=== PATIENT | female | born 1985 | race Caucasian/White ===

== ENCOUNTER → 2022-09-06 08:50 | Outpatient (BNVA) | payer OTHER, SELFPAY | PROVIDERS: Referring Provider Electrodiagnostic Medicine; Visit Provider Obstetrics & Gynecology | DX: N92.0 Excessive and frequent menstruation with regular cycle (principal) | CPT/HCPCS: 83001; 84146; 84443; 84702; 85025 ==

== ENCOUNTER → 2022-10-07 11:30 | Outpatient (BNVA) | payer OTHER, SELFPAY | PROVIDERS: Visit Provider Obstetrics & Gynecology | DX: Z01.419 Encounter for gynecological examination (general) (routine) without abnormal findings (principal) | CPT/HCPCS: 87624 ==

== ENCOUNTER 2022-10-12 09:45 | Observation (INO) | payer OTHER, SELFPAY ==
[2022-10-10 09:37] VITALS: BMI 34.3
--- NOTE | 2022-10-10 09:55 | ANES.PREANE2 ---
Pre-Anesthetic Assessment Height/Weight: Height 1.63 m Weight 90.718 kg Operation Date: 10/12/22 08:25 Proposed Procedures p Laparoscopic Assist Vaginal Hysterectomy 50522,N92.0, D25.9,D64.9(Not Applicable) - Rolando Mauricio MD Familial anesthetic complications: None Social No alcohol and No tobacco Exam alert, oriented x 3, clear to auscultation bilaterally and regular rate & rhythm Airway Mallampati: Class II Dentition: chipped Anesthetic Plan ASA status: 2 Anesthesia: General Risk of > 500 ml blood loss (7ml/kg in children): No Medications/Allergies Home Medications Medication Instructions Recorded Confirmed Last Taken Type docusate sodium 100 mg capsule 100 mg PO DAILY 09/06/22 10/10/22 Unknown History (Colace) ferrous sulfate 325 mg (65 mg 325 mg PO DAILY 09/06/22 10/10/22 10/10/22 History iron) tablet famotidine 20 mg tablet 20 mg PO ONCE PRN Acid Reflux 10/10/22 10/10/22 Unknown History Allergies Allergy/AdvReac Type Severity Reaction Status Date / Time No Known Allergies Allergy Verified 10/10/22 09:38 [facility] Anesthesia Family History Grandfather Colon cancer Mother Denies family history of Ovarian cancer Diabetes Heart disease Hypercholesteremia Breast cancer Hypertension Uterine cancer Thyroid disease Stroke Data Anesthesia Cardiac Studies: No Data to Display
[2022-10-10 10:37] LABS: Add Urine Microscopic? NO; Charge for UA Resulting for Rev
[2022-10-10 10:49] LABS: Basophils % 0.7 %; Eosinophils # 0.1 10^3/uL (0.0-0.8); Eosinophils % 1.3 %; Hematocrit 38.3 % (37.0-47.0); Hemoglobin 12.6 g/dL (11.5-15.3); Lymphocytes # 1.6 10^3/uL (0.8-4.8); Lymphocytes % 29.3 %; Mean Corpuscular HGB Conc 32.9 g/dL (30.0-36.0); Mean Corpuscular Hemoglobin 27.3 pg (28.0-34.0); Mean Corpuscular Volume 83.1 fl (81-99); Monocytes # 0.4 10^3/uL (0.2-0.9); Monocytes % 8.1 %; Neutrophils # 3.26 10^3/uL (1.8-7.7); Neutrophils % 60.4 %; Nucleated Red Blood Cells % 0 %; Platelet Count 218 10^3/cmm (130-400); Red Blood Count 4.61 10^6/uL (4.1-5.3); Red Cell Distribution Width 13.2 % (12.1-15.1); White Blood Count 5.4 10^3/uL (4.0-10.0)
[2022-10-10 10:58] LABS: OR HCG Qualitative Urine Negative (Negative)
[2022-10-10 10:58] LABS: Bilirubin Urine Neg (Negative); Blood Urine Neg (Negative); Glucose Urine UA Norm (Normal); Ketones Urine Negative (Negative); Leukocyte Esterase Urine Negative (Negative); Nitrate Urine Negative (Negative); Protein Urine Neg (Negative); Sulfosalicylic Acid Urine Negative (Negative); Urine Appearance Clear (CLEAR); Urine Color Yellow (Yellow); Urobilinogen Urine Norm (Negative); pH Urine 8 (5-7)
[2022-10-10 11:01] LABS: Alanine Aminotransferase 10 U/L (0-33); Albumin Level 4.4 g/dL (3.5-5.2); Alkaline Phosphatase 62 U/L (35-105); Anion Gap 11.8 (5-19); Aspartate Amino Transferase 15 U/L (0-32); Blood Urea Nitrogen 15 mg/dL (6-20); Calcium 8.7 mg/dL (8.5-10.5); Carbon Dioxide 26 mmol/L (22-29); Chloride 100 mmol/L (98-107); Creatinine Clr Calc Pharmacy 120.0463; Globulin 2.4 g/dL (1.3-4.6); Glomerular Filtration Rate 94.2 mL/min (90-130); Glucose 86 mg/dL (65-115); Osmolality Calculated 278 mOsm/kg (285-295); Potassium 3.8 mmol/L (3.5-5.1); Sodium 134 mmol/L (136-145); Total Bilirubin 0.8 mg/dL (0.15-1.2); Total Protein 6.8 g/dL (6.6-8.7)
[2022-10-12] VITALS (17 sets, daily range): BP systolic 104–143; BP diastolic 63–98; PULSE 64–87; RESP 15–18; TEMP 36.1–36.8; O2SAT 92–99
[2022-10-12] MEDS: sodium chloride 0.9% 500 ML IV (06:12)
[2022-10-12] MEDS: scopolamine 1.5 Patch 1 PATCH TRANSDERMA (06:13)
--- NOTE | 2022-10-12 06:54 | P.ANESUD_ITS ---
Pre-Anesthetic Update Pre-Anesthetic Assessment: Date of Surgery/Procedure: 10/12/22 Preop [place] gnosis: AUB and Uterine fibroid Proposed Procedure: Operation Date: 10/12/22 07:00 Proposed Procedures p Laparoscopic Assist Vaginal Hysterectomy 02035,N92.0, D25.9,D64.9(Not Applicable) - Rolando Mauricio MD Any changes to Pre-Anesthetic Assessment?: No Last Intake: Intake Last Liquid Date 10/11/22 Last Liquid Time 19:00 Last Solid Date 10/11/22 Last Solid Time 19:00 Labs Last 48hrs: Short CBC 10/10/22 Range/Units 09:47 WBC 5.4 (4.0-10.0) 10^3/ uL Hgb 12.6 (11.5-15.3) g/dL Hct 38.3 (37.0-47.0) % MCV 83.1 (81-99) fl Plt Count 218 (130-400) 10^3/c mm Neut % (Auto) 60.4 % Neut # (Auto) 3.26 (1.8-7.7) 10^3/u L BMP 10/10/22 09:47 Sodium 134 L Potassium 3.8 Chloride 100 Carbon Dioxide 26 BUN 15 Creatinine 0.7 Glucose 86 Calcium 8.7 Liver Function 10/10/22 Range/Units 09:47 Total Bilirubin 0.8 (0.15-1.2) mg/dL AST 15 (0-32) U/L ALT 10 (0-33) U/L Alkaline Phosphata se 62 (35-105) U/L Albumin 4.4 (3.5-5.2) g/dL Urine 10/10/22 Range/Units 09:55 Urine Color Yellow (Yellow) Urine Appearance Clear (CLEAR) Urine pH 8 H (5-7) Ur Specific Gravit y 1.010 (1.005-1.030) Urine Protein Neg (Negative) Urine Glucose (UA) Norm (Normal) Urine Ketones Negative (Negative) Urine Nitrate Negative (Negative) Urine Bilirubin Neg (Negative) Ur Leukocyte Ava ase Negative (Negative) Blood Bank 10/10/22 09:47 Blood Type A Positive Rho(D) Type Positive Antibody Screen Negative Vitals: Temperature 97 F L 10/12/22 06:06 Temperature Source Temporal Artery S can 10/12/22 06:06 Pulse Rate 87 10/12/22 06:06 Respiratory Rate 16 10/12/22 06:06 Blood Pressure 143/96 10/12/22 06:06 Blood Pressure Gracie n 111 10/12/22 06:06 Pulse Oximetry 98 10/12/22 06:06 Oxygen Delivery Me thod Room Air 10/12/22 06:06 Exam: Pre-Anes Outpt Exam: alert, oriented x 3, clear to auscultation bilaterally and regular rate & rhythm Cardiac Studies: No Data to Display
[2022-10-12] MEDS: famotidine 20 mg/2 mL INJ IVP (07:00)
--- NOTE | 2022-10-12 07:00 | W.PM.OPSUD ---
Surgery/Procedure H&P Update DATE OF PROCEDURE: October 12, 2022 DATE H&P PERFORMED: 10/10/22 H&P UPDATE INFORMATION: I have reviewed H&P completed within last 30 days, I have examined patient prior to procedure and No changes to prior documentation PREOP DIAGNOSIS: AUB and Uterine fibroid PLANNED PROCEDURE: Operation Date: 10/12/22 07:00 Proposed Procedures p Laparoscopic Assist Vaginal Hysterectomy 02622,N92.0, D25.9,D64.9(Not Applicable) - Rolando Mauricio MD
[2022-10-12] MEDS: citric acid-sodium citrate 30 mL UDC PO (07:02)
[2022-10-12] MEDS: sodium chloride 0.9% 1,000 ML 30 ML IV (07:03)
[2022-10-12] MEDS: ceFOXitin 2,000 MG in sodium chloride 0.9% (plus) 50 ML 100 MG IV (07:06)
[2022-10-12] MEDS: lidocaine-epi 2% 20 mL INJ 10 ML INJECTION (09:23)
--- NOTE | 2022-10-12 09:35 | P.OP_ITS ---
Operative Report Date of procedure: October 12, 2022 Pre-op diagnosis: Preop Diagnosis AUB and Uterine fibroid Post-op diagnosis: Same as above Post-op findings: Enlarged uterus Procedure done: Laparoscopic assisted vaginal hysterectomy Specimens removed/disposition: Uterus Surgeon: Rolando Mauricio MD Estimated blood loss (mL): 300 IV fluids (mL): 1,700 Urine output (mL): 800 Complications: None Procedure: After discussing informed consent again, the patient was taken to the operating room where general anesthesia was administered. She was placed in the dorsal lithotomy position in low stirrups and prepped and draped in sterile fashion. Pre-Procedure Time-Out verifying the correct patient identity, correct procedure verified with consent, correct site and side, correct patient position, availability of correct implants and any special equipment or requirements was performed and acknowledge by the OR team. After the initial preparation, the procedure commenced at the vagina. With a Bookwalter vaginal retractor was place to visualize the cervix; the anterior and posterior lips of the cervix were separately grasped and clamped with evelin tooth tenaculum. The cervix was then dilated to a #6 hegar dilator and a uterine manipulator within the uterine cavity for manipulation purposes being careful not to puncture the uterus. A Carrera catheter was placed in the bladder. Attention was then turned to the abdomen. The umbilical region was infiltrated with 2% lidocaine with epinephrine. Following infiltration with 2% lidocaine with epinephrine, an intraumbilical incision was made and the Verres needle was gently advanced taking care to feel for the typical sensation of penetrating the peritoneum. With CO2 infiltration, an opening pressure of 5 mmHg was noted, and following this, a pneumoperitoneum of 15 mmHg was created. A 5 mm Optiview trocar was then passed through the same incision under direct visualization. Trocar was removed and the laparoscope was then inserted through the trocar sleeve. Visualization of the peritoneal cavity was then obtained and a brief inspection did not reveal any signs of complications from entry. Under direct observation, a second incision was made 3 cm above the symphysis pubis, and a 5 mm trocar and sleeve were admitted into the abdomen under direct, laparoscopic visualization, a third 5mm flank ports were then placed on left sides taking care to respect anatomical landmarks and vessels without complication. Once the placement of the ports was complete, the actual laparoscopic procedure began. Beginning on the right side and distally along the length of the fallopian tube, the mesosalpinx was exposed by lifting the tube/ovary up towards the anterior abdominal wall. The mesosalpinx was then sequentially, clamped, ligated, and cut using the LigaSure device working alongside the length of the tube and towards the cornua. Once the level of the cornua was reached attention was then turned to the other side. The same process was repeated on the left, sequentially clamping, sealing/ligating, and cutting the mesosalpinx being sure to not injure the adjacent ovarian tissue or other surrounding structures. The round ligament was then clamped, sealed/ligated and cut with the LigaSure device. Following this, the anterior leaf of the broad ligament was then taken down on the left side, dissecting down towards the peritoneal reflection at the base of the bladder and adjacent to the cervix. The same process was then repeated on the left side such that both sides met and the anterior leaflet had been appropriately skeletonized. To ensure excellent hemostasis prior to further manipulation, the pedicles of the cardinal ligament was then clamped sealed/ligated and divided on each side using the LigaSure device. Attention was then turned to the vaginal aspect of the surgery. A Bookwalter vaginal retractor was placed in the vagina and the uterine manipulator was removed. The tenaculum was repositioned anteriorly and posteriorly. A circumferential incision was made at the cervical vaginal reflection using cautery. This was undermined first anteriorly and a colpotomy made without difficulty. This was then repeated posteriorly and a similar colpotomy made. Darrick retractors were then placed into each of these incisions. Beginning first on the patient's left, the uterosacral and cardinal ligament was clamped, sealed, and divided with the Voyant open fusion device. Two bites were required to reach the previous dissection margin of the left side. The same process was then repeated on the patient's right hand side, at which point, the specimen was completely freed. Once the sutures had been placed and the pedicles secured, the uterus removed transvaginally without difficulty. All pedicles were inspected and hemostasis was confirmed. The vaginal vault was then oversewn with a running locking Vicryl suture, securing first the posterior edge of the cuff followed by the anterior edge. Good hemostasis was obtained. Two [id number] sutures were then placed across the vaginal vault to close it. Once these had been tied off, all sutures were trimmed; a wet sponge was placed in the vagina to pack it off while attention was again turned back to the abdomen. All instruments were removed from the vagina at this time. Using the laparoscope the abdomen was carefully inspected to ensure complete hemostasis. Once the entire abdomen was inspected, the instruments carefully removed. The ports were then removed under direct visualization being sure to note hemostasis of the port sites on removal. The incisions were then closed with interrupted Vicryl sutures and Dermabond. The patient tolerated the procedure well, anesthesia reversed, and the patient was taken to the recovery room in stable condition. All sponges, instruments, and sharps were counted and correct x 3. I spent 35 minutes with the patient in discussion and counseling as documented above This documentation was created by [employer] transcription coordinator software (known for inherent transcription coordinator error). Every effort was made to assure accuracy of transcription coordinator. But this EMR does not have a spell check medical dictionary.
--- NOTE | 2022-10-12 09:58 | PC.NURSE ---
Pt arrived to PACU, resting comfortably, VSS, no pain or nausea noted. Dermabond to abdomen C/D/I, peripad in place-no drainage noted at this time. Carrera catheter patent and draining. SCDs in place and running.
[2022-10-12] MEDS: fentaNYL 50 mcg/mL INJ 2mL IVP (10:05)
--- NOTE | 2022-10-12 10:25 | ANE.PACU2 ---
Inpatient post-anesthesia follow up: Airway intact: Yes Vital signs: Temperature 98.0 F Pulse Rate 83 Respiratory Rate 18 Blood Pressure 134/98 Pulse Oximetry 93 Oxygen Delivery Me thod Room Air Oxygen Flow Rate Fraction of Inspir ed Oxygen Hydration adequate: Yes Nausea and vomiting: No Pain level: 1 Mental status: Baseline
[2022-10-12] MEDS: dextrose 5%-lactated ringers 1,000 ML 125 ML IV ×2 (10:47→18:33)
[2022-10-12] MEDS: acetaminophen 325 mg Tablet 650 MG PO ×2 (13:01→18:33)
[2022-10-12] MEDS: ketorolac 30 mg/mL INJ IVP ×2 (15:28→21:56)
[2022-10-12] MEDS: docusate sodium 100 mg Capsule PO (17:56)
[2022-10-12] MEDS: phenazopyridine 100 mg Tablet PO (17:57)
[2022-10-13 02:24] VITALS: PULSE 80; RESP 16; TEMP 36.8; O2SAT 98
[2022-10-13] MEDS: dextrose 5%-lactated ringers 1,000 ML 125 ML IV (02:41)
[2022-10-13 04:00] VITALS: BP 117/73; PULSE 68; RESP 15; TEMP 36.6; O2SAT 97
[2022-10-13 05:10] LABS: Hematocrit 27.7 % (37.0-47.0); Hemoglobin 9.1 g/dL (11.5-15.3); Mean Corpuscular HGB Conc 32.9 g/dL (30.0-36.0); Mean Corpuscular Hemoglobin 27.9 pg (28.0-34.0); Mean Platelet Volume 10.2 fL (7.4-10.4); Platelet Count 144 10^3/cmm (130-400); Red Blood Count 3.26 10^6/uL (4.1-5.3); Red Cell Distribution Width 12.9 % (12.1-15.1); White Blood Count 7.5 10^3/uL (4.0-10.0)
[2022-10-13 07:30] VITALS: BP 126/73; PULSE 87; RESP 16; TEMP 36.9
--- NOTE | 2022-10-13 08:30 | PM.OBGYDC ---
Discharge Providers CUSTOM BOW MAKER Date of Admission: 10/12/22 09:45 Date of Discharge: 10/13/22 Attending Provider at Admission: Rolando Mauricio MD Attending Provider at Discharge: Rolando Mauricio MD Primary CUSTOM BOW MAKER: Rolando Mauricio MD Reason for Visit Reason for Visit: 91223 N92.0 Hospital Course Hospital Course Mrs. Cody 36-year-old female with a history of abnormal uterine bleeding and enlarged uterus suggestive of uterine fibroid. Admitted for laparoscopic-assisted vaginal hysterectomy. Procedure was performed without complications. Overnight postoperative observation was uneventful. She is afebrile hemodynamically stable postoperative day 1. Tolerating diet well. Ambulating without difficulty. She was counseled regarding pelvic rest for 6 weeks (no sex, no tampons, no vaginal douches). Return to the emergency room if any fever, increased bleeding or pain. Physical Exam Narrative: GA: Alert and oriented ?3. HEENT: WNL. Heart: Regular rate and rhythm. Lungs: Clear to auscultation bilaterally. Abdomen: Bowel sounds present, nontender, no distention, no guarding. PLATING TECHNICIAN: No bleeding. Extremities: No edema, no cyanosis, no calves pain. Urinary Catheter Management: Carrera: Cath Placed During This Visit: yes, but has since been removed by the nurse Reason for Continuing Indwelling Catheter: Decision to DC Catheter Urinary Catheter Date of Insertion: 10/12/22 Urinary Catheter Time of Insertion: 07:38 Date Urinary Catheter Removed: 10/13/22 Time Urinary Catheter Discontinued: 05:15 History History History 2 Term 2 0 Miscarriages/Ectopic 0 Living Children 2 Discharge Data Studies Completed and Pending Pending at discharge Category Date Time Status Pathology: Surgical [PTH] Routine Pth 10/12/22 09:11 Received Laboratory Results WBC 7.5 10^3/uL (4.0-10.0) 10/13/22 05:00 RBC 3.26 10^6/uL (4.1-5.3) L 10/13/22 05:00 Hgb 9.1 g/dL (11.5-15.3) L 10/13/22 05:00 Hct 27.7 % (37.0-47.0) L 10/13/22 05:00 MCV 85.0 fl (81-99) 10/13/22 05:00 MCH 27.9 pg (28.0-34.0) L 10/13/22 05:00 MCHC 32.9 g/dL (30.0-36.0) 10/13/22 05:00 RDW 12.9 % (12.1-15.1) 10/13/22 05:00 Plt Count 144 10^3/cmm (130-400) 10/13/22 05:00 MPV 10.2 fL (7.4-10.4) 10/13/22 05:00 Neut % (Auto) 60.4 % 10/10/22 09:47 Lymph % (Auto) 29.3 % 10/10/22 09:47 [place] % (Auto) 8.1 % 10/10/22 09:47 Eos % (Auto) 1.3 % 10/10/22 09:47 Baso % (Auto) 0.7 % 10/10/22 09:47 Neut # (Auto) 3.26 10^3/uL (1.8-7.7) 10/10/22 09:47 Lymph # (Auto) 1.6 10^3/uL (0.8-4.8) 10/10/22 09:47 [place] # (Auto) 0.4 10^3/uL (0.2-0.9) 10/10/22 09:47 Eos # (Auto) 0.1 10^3/uL (0.0-0.8) 10/10/22 09:47 Baso # (Auto) 0.0 10^3/uL (0.0-0.1) 10/10/22 09:47 Nucleated RBC % (auto) 0 % 10/10/22 09:47 Nucleated RBCs # 0.0 /100WBC 10/10/22 09:47 Sodium 134 mmol/L (136-145) L 10/10/22 09:47 Potassium 3.8 mmol/L (3.5-5.1) 10/10/22 09:47 Chloride 100 mmol/L (98-107) 10/10/22 09:47 Carbon Dioxide 26 mmol/L (22-29) 10/10/22 09:47 Anion Gap 11.8 (5-19) 10/10/22 09:47 BUN 15 mg/dL (6-20) 10/10/22 09:47 Creatinine 0.7 mg/dL (0.5-0.9) 10/10/22 09:47 GFR Calculation 94.2 mL/min (90-130) 10/10/22 09:47 Glucose 86 mg/dL (65-115) 10/10/22 09:47 Calculated Osmolality 278 mOsm/kg (285-295) L 10/10/22 09:47 Calcium 8.7 mg/dL (8.5-10.5) 10/10/22 09:47 Total Bilirubin 0.8 mg/dL (0.15-1.2) 10/10/22 09:47 AST 15 U/L (0-32) 10/10/22 09:47 ALT 10 U/L (0-33) 10/10/22 09:47 Alkaline Phosphatase 62 U/L (35-105) 10/10/22 09:47 Total Protein 6.8 g/dL (6.6-8.7) 10/10/22 09:47 Albumin 4.4 g/dL (3.5-5.2) 10/10/22 09:47 Globulin 2.4 g/dL (1.3-4.6) 10/10/22 09:47 Urine Color Yellow (Yellow) 10/10/22 09:55 Urine Appearance Clear (CLEAR) 10/10/22 09:55 Urine pH 8 (5-7) H 10/10/22 09:55 Ur Specific [place] 1.010 (1.005-1.030) 10/10/22 09:55 Urine Protein Neg (Negative) 10/10/22 09:55 Urine Glucose (UA) Norm (Normal) 10/10/22 09:55 Urine Ketones Negative (Negative) 10/10/22 09:55 Urine Blood Neg (Negative) 10/10/22 09:55 Urine Nitrate Negative (Negative) 10/10/22 09:55 Urine Bilirubin Neg (Negative) 10/10/22 09:55 Prot Sulfosalicylic Acd Negative (Negative) 10/10/22 09:55 Urine Urobilinogen Norm mg/dL (Negative) 10/10/22 09:55 Ur Leukocyte Esterase Negative (Negative) 10/10/22 09:55 Urine HCG, Qual Negative (Negative) 10/10/22 09:47 Blood Type A Positive 10/10/22 09:47 Rho(D) Type Positive 10/10/22 09:47 Antibody Screen Negative 10/10/22 09:47 Vitals Last Vital Signs Temp 97.8 F 10/13/22 04:00 Pulse 68 10/13/22 04:00 Resp 15 10/13/22 04:00 BP 117/73 10/13/22 04:00 Pulse Ox 97 10/13/22 04:00 O2 Del Method Room Air 10/13/22 04:00 Discharge Plan Discharge Patient Disposition: Home Prescriptions: New hydrocodone-acetaminophen 5-325 mg tablet 1 tab PO Q4H PRN (Reason: pain) Qty: 20 0RF acetaminophen 325 mg capsule 325 mg PO Q4H PRN (Reason: fever or postoperative pain) Qty: 60 0RF ibuprofen 800 mg tablet 800 mg PO TID PRN (Reason: pain) Qty: 60 0RF Continued famotidine 20 mg tablet 20 mg PO ONCE PRN (Reason: Acid Reflux) ferrous sulfate 325 mg (65 mg iron) tablet 325 mg PO DAILY docusate sodium [Colace] 100 mg capsule 100 mg PO DAILY Discharge Orders: Discharge Order (Routine); Ordered 10/13/22 Ordered By: Rolando Mauricio Referrals: Rolando Mauricio MD [Physician] - 2 weeks Discharge Diet: Usual diet Discharge Activity: Limit activity as instructed Patient Instructions: Laparoscopic Hysterectomy (GEN), OB Discharge Report, OB Food/Drug Interaction Guide, Opioid Safety Activity Restrictions/Additional Instructions: 1. Please call [facility] on next working day to make your post-operative appointment in 2 weeks. 2. Please stay home until you come back to the clinic on first post-hospatilization check up. 3. Please follow instructions on your medications CAREFULLY. 4. If you have abdominal incision, do not cover it unless dressing is necessary because of drainage. OK to shower, but avoid bath. Leave steri-strips until they fall off. If they are still on one week after surgery, you may remove them. 5. If you had vaginal surgery or vaginal repair, Dr. Mauricio may instruct you to take SITZ bath. 6. Yellow, blood tinged odorous vaginal discharge is usually normal after hysterectomy or vaginal surgeries. 7. No SEXUAL INTERCOURSE, tampons, or douches until you are completely released from the post-operative care. 8. Avoid constipation by eating right and maybe using some Metamucil or Milk of Magnesia. 9. All prescription refills are given during the working hours. Please do no wait till it runs out. Call the clinic at [phone] before your medication runs out. The clinic will get in touch with your doctor to prescribe medications if necessary. 10. Please remain within 40 mile radius from our hospital because emergencies do happen now and then during the post-operative period. 11. If you have stairs at home, take one step at a time slowly and minimize the number of trips. It helps to stay in one floor for the next few days. No lifting except what you can lift by one hand until you are released from the post-operative care. 12. Driving is discouraged until you are well healed. It may be 3-4 weeks before you feel strong enough to drive. You should be able to turn and look through the rear window without pain and you should be able to push the brake pedal very hard without pain before you drive. No fast rules, but SAFETY should be your primary concern. DO NOT drive if you are on sedating medications such as narcotics. 13. Call the clinic (during working hours) to make urgent appointment or go to the Emergency room, if any of the following occurs: i. Vaginal bleeding becomes heavy, more than a period. ii. Incision becomes red and sore, or drains pus. iii. Your TEMPERATURE is over 100.4F or you have chill. iv. IV site becomes red and swollen (a little ``knot?? is usually OK) v. Persistent nausea and vomiting vi. Persistent constipation or diarrhea vii. Rash or allergic reaction to medications. Discharge Attestations CUSTOM BOW MAKER Time Spent in Discharge Care*: greater than 30 min Coding Level of Care Code Acute Code for Chg Fwd Diagnoses
[2022-10-13 09:40] VITALS: BP 126/73; PULSE 87; RESP 16; TEMP 36.9
== END 2022-10-13 09:45 | disposition home or self-care (01) ==
LOC: OBGYN 09:45
PROVIDERS: Admitting Provider Obstetrics & Gynecology; Visit Provider Obstetrics & Gynecology
PROC: 0UT9FZZ Resection of Uterus, Via Natural or Artificial Opening With Percutaneous Endoscopic Assistance (ICD-10-PCS; CPT 58550; principal; 2022-10-12 07:00)
DX: D25.9 Leiomyoma of uterus, unspecified (principal)
CPT/HCPCS: 58550; 36415; 80053; 81003; 81025; 84703; 85025; 85027; 86850; 86900; 88307; 96374; 96376; G0378; J0131; J0330; J0694; J1100; J1170; J1200; J1885; J2250; J2405; J2704; J2710; J3010; J3490; J7030; J7040; J7121; Q9968